=== PATIENT | male | born 1960 | race Caucasian/White ===

== ENCOUNTER 2016-07-07 | Emergency (ER) | payer MEDICAID | END 2016-07-07 03:30 | disposition left against medical advice (07) | DX: Z53.21 Procedure and treatment not carried out due to patient leaving prior to being seen by health care provider (principal) ==

== ENCOUNTER 2020-03-22 01:53 | Outpatient (CLI) | payer MEDICAID | END 2020-03-22 01:54 | disposition critical access hospital (66) | LOC: EMS 01:53 | PROVIDERS: ATTEND Surgery | DX: R47.81 Slurred speech (principal); R26.89 Other abnormalities of gait and mobility; R25.9 Unspecified abnormal involuntary movements | CPT/HCPCS: A0425; A0427; A0999 ==

== ENCOUNTER 2020-03-22 02:08 | Emergency (ER) | payer MEDICAID ==
--- NOTE | 2020-03-22 02:07 | ED Physician Documentation ---
History of Present Illness - Stated complaint Stated Complaint: AMS S/P HEROIN - History obtained from History obtained from: EMS - Additonal information Additional information: 60-year-old male brought in by EMS.The patient is unable to provide a detailed history he does admit to using IV drugs apparently according to EMS he was using IV drugs and then his noticed that he was not acting like himself so they called 911 remainder the history is unknown. Review of Systems Unable to obtain: Confused PD PAST MEDICAL HISTORY - Present Medications Home Medications: Ambulatory Orders Medication Instructions Recorded Confirmed No Known Home Medications 03/22/20 03/22/20 - Allergies Allergies/Adverse Reactions: Allergies Allergy/AdvReac Type Severity Reaction Status Date / Time No Known Drug Allergies Allergy Verified 03/22/20 02:17 PD ED PE NORMAL - Vitals Vital signs reviewed: Yes - General General: Other (Confused 60-year-old male he does appear to be under the influence of some sort of drug.) - HEENT HEENT: Atraumatic, PERRL, EOMI, Other (Pupils are 2 mm and minimally reactive.) - Neck Neck: Supple, no meningeal sign - Cardiac Cardiac: RRR, No murmur, Strong equal pulses - Respiratory Respiratory: No respiratory distress, Clear bilaterally - Abdomen Abdomen: Normal bowel sounds, Soft, Non tender, Non distended - Derm Derm: Warm and dry, Other (Presents of IV drug use in bilateral upper extremities) - Extremities Extremities: No deformity, No tenderness to palpate, No calf tenderness / cord - Neuro Neuro: Other (Confused not oriented shaking but no focal deficits) - Psych Psych: Normal mood, Normal affect Results - Vitals Vitals: Vital Signs - 24 hr 03/22/20 03/22/20 03/22/20 02:15 02:17 04:17 Temperature 37.3 C 37.3 C 36.5 C Heart Rate 72 72 86 Respiratory 20 20 20 Rate Blood Pressure 145/99 H 145/99 H 169/87 H O2 Saturation 93 93 94 03/22/20 03/22/20 04:55 05:42 Temperature 36.6 C 36.5 C Heart Rate 100 128 H Respiratory 18 18 Rate Blood Pressure 169/100 H 212/100 H O2 Saturation 98 96 Oxygen O2 Source Mechanical ventilator - EKG (time done) 03:36 Rate: Other (no stemi) - Labs Labs: Laboratory Tests 03/22/20 03/22/20 03/22/20 02:53 02:53 02:53 WBC 13.0 H RBC 5.75 Hgb 17.0 Hct 52.4 H MCV 91.1 MCH 29.6 MCHC 32.4 RDW 13.2 Plt Count 243 MPV 10.3 Neut # (Auto) 7.3 H Lymph # (Auto) 4.2 H [place] # (Auto) 1.1 H Eos # (Auto) 0.2 Baso # (Auto) 0.1 Absolute Nucleated RBC 0.00 Nucleated RBC % 0.0 PT 13.0 H INR 1.2 APTT 33.5 H Sodium 141 Potassium 4.2 Chloride 103 Carbon Dioxide 28 Anion Gap 10.0 BUN 22 H Creatinine 1.1 Estimated GFR (MDRD) 69 L Glucose 108 H Lactic Acid Calcium 9.4 Magnesium 2.4 Total Bilirubin 1.3 H AST 82 H ALT 88 H Alkaline Phosphatase 121 Total Creatine Kinase 562 H Troponin I High Sens Total Protein 7.9 Albumin 3.7 Globulin 4.2 Albumin/Globulin Ratio 0.9 L Lipase 82 H TSH Urine Color Urine Clarity Urine pH Ur Specific [place] Urine Protein Urine Glucose (UA) Urine Ketones Urine Occult Blood Urine Nitrite Urine Bilirubin Urine Urobilinogen Ur Leukocyte Esterase Urine RBC Urine WBC Ur Squamous Epith Cells Urine Bacteria Ur Microscopic Review Urine Culture Comments Salicylates < 6.0 Urine Opiates Screen Ur Oxycodone Screen Urine Methadone Screen Ur Propoxyphene Screen Acetaminophen < 10 L Ur Barbiturates Screen Ur Tricyclics Screen Ur Phencyclidine Scrn Ur Amphetamine Screen U Methamphetamines Scrn U Benzodiazepines Scrn Urine Cocaine Screen U Cannabinoids Screen Ethyl Alcohol < 5.0 03/22/20 03/22/20 03/22/20 02:53 02:53 02:53 WBC RBC Hgb Hct MCV MCH MCHC RDW Plt Count MPV Neut # (Auto) Lymph # (Auto) [place] # (Auto) Eos # (Auto) Baso # (Auto) Absolute Nucleated RBC Nucleated RBC % PT INR APTT Sodium Potassium Chloride Carbon Dioxide Anion Gap BUN Creatinine Estimated GFR (MDRD) Glucose Lactic Acid 1.9 Calcium Magnesium Total Bilirubin AST ALT Alkaline Phosphatase Total Creatine Kinase Troponin I High Sens 34.9 H* Total Protein Albumin Globulin Albumin/Globulin Ratio Lipase TSH 0.76 Urine Color Urine Clarity Urine pH Ur Specific [place] Urine Protein Urine Glucose (UA) Urine Ketones Urine Occult Blood Urine Nitrite Urine Bilirubin Urine Urobilinogen Ur Leukocyte Esterase Urine RBC Urine WBC Ur Squamous Epith Cells Urine Bacteria Ur Microscopic Review Urine Culture Comments Salicylates Urine Opiates Screen Ur Oxycodone Screen Urine Methadone Screen Ur Propoxyphene Screen Acetaminophen Ur Barbiturates Screen Ur Tricyclics Screen Ur Phencyclidine Scrn Ur Amphetamine Screen U Methamphetamines Scrn U Benzodiazepines Scrn Urine Cocaine Screen U Cannabinoids Screen Ethyl Alcohol 03/22/20 03:11 WBC RBC Hgb Hct MCV MCH MCHC RDW Plt Count MPV Neut # (Auto) Lymph # (Auto) [place] # (Auto) Eos # (Auto) Baso # (Auto) Absolute Nucleated RBC Nucleated RBC % PT INR APTT Sodium Potassium Chloride Carbon Dioxide Anion Gap BUN Creatinine Estimated GFR (MDRD) Glucose Lactic Acid Calcium Magnesium Total Bilirubin AST ALT Alkaline Phosphatase Total Creatine Kinase Troponin I High Sens Total Protein Albumin Globulin Albumin/Globulin Ratio Lipase TSH Urine Color YELLOW Urine Clarity CLEAR Urine pH 5.5 Ur Specific [place] 1.025 Urine Protein NEGATIVE Urine Glucose (UA) NEGATIVE Urine Ketones NEGATIVE Urine Occult Blood MODERATE H Urine Nitrite NEGATIVE Urine Bilirubin NEGATIVE Urine Urobilinogen 0.2 (NORMAL) Ur Leukocyte Esterase NEGATIVE Urine RBC 0-5 Urine WBC 0-3 Ur Squamous Epith Cells RARE Squamous Urine Bacteria Rare Ur Microscopic Review INDICATED Urine Culture Comments NOT INDICATED Salicylates Urine Opiates Screen POSITIVE H Ur Oxycodone Screen NEGATIVE Urine Methadone Screen NEGATIVE Ur Propoxyphene Screen NEGATIVE Acetaminophen Ur Barbiturates Screen NEGATIVE Ur Tricyclics Screen NEGATIVE Ur Phencyclidine Scrn NEGATIVE Ur Amphetamine Screen POSITIVE H U Methamphetamines Scrn POSITIVE H U Benzodiazepines Scrn NEGATIVE Urine Cocaine Screen NEGATIVE U Cannabinoids Screen NEGATIVE Ethyl Alcohol Procedures - Intubation Provider: Emergency physician Medications: Etomidate, Succinylcholine Blade: Glidescope Tube: Size-enter number (7.5), Cuffed, Marked at lips-enter cm (25) Route: Oral Confirmation: Direct visualization, Bilateral breath sounds, No abdominal breath sound, End tidal CO2, Pulse ox, Chest xray Complications: No compications PD MEDICAL DECISION MAKING - ED course Complexity details: reviewed old records, reviewed results, re-evaluated patient, considered differential, d/w patient, d/w family, d/w search consultant (Dr. He at [facility]bl[employer] paint sprayer has accepted this patient. Unable to transfer patient via [facility] due to weatherPatient will be transferred via ground ACLS.), other ED course: 60-year-old male brought in for IV drug abuse and not acting like himself he did show some evidence of pinpoint pupils and hypoventilation was given Narcan he was monitored for a while he started complaining of withdrawing from opioids and was asking for opioids. He did became diaphoretic and started yawning and diaphoretic. He was put in the CT scanner which showed a large intraparenchymal hemorrhage. Patient was then intubated using etomidate and succinylcholine with a size 7.5 endotracheal tube. Post intubation chest x-ray shows good tube placement. Patient also was started on Cardene for his intraparenchymal hemorrhage as well as propofol drip and spoke with the intensive Dr. He at [facility] who agreed to accept this patient. [facility] is not flying he will be transferred via ground ACLS. - Critical Care Time(min): 54 Time Includes: Direct patient care, Review records, Reassess patient, Document care, Coordinate care, Medical consult, Family consult for tx dec Data interpretation: Labs, Pulse ox, ABG, CXR, Prior EKG Procedures included in critical care time: Peripheral IV, Gastric intubation, Ventilator mgmt Procedures excluded from critical care time: Intubation, EKG Departure - Departure Disposition: 02 Transfer Acute Care Hosp Clinical Impression: Substance abuse, Intraparenchymal hemorrhage of brain, Elevated troponin Condition: Critical
[2020-03-22] MEDS ORDERED: NALOXONE 0.4 MG/ML VIAL IVP STA (02:22)
[2020-03-22] MEDS ORDERED: SODIUM CHLORIDE 0.9% 1,000 ML IV STA (02:43)
[2020-03-22] MEDS ORDERED: LORazepam 2 MG/ML VIAL IVP STA ×4 (02:43→03:56)
[2020-03-22] MEDS ORDERED: cloNIDine 0.3 MG PATCH TOP STA (02:54)
[2020-03-22 02:56] LABS: BASOPHILS # (AUTO) 0.1 10^3/uL (0.0-0.1); BASOPHILS % (AUTO) 0.8 %; EOSINOPHILS # (AUTO) 0.2 10^3/uL (0.0-0.7); EOSINOPHILS % (AUTO) 1.4 %; LYMPHOCYTES # (AUTO) 4.2 10^3/uL (1.5-3.5); LYMPHOCYTES % (AUTO) 32.2 %; MEAN CORPUSCULAR HEMOGLOBIN 29.6 pg (27.0-31.0); MEAN CORPUSCULAR HGB CONC 32.4 g/dL (32.0-36.0); MEAN CORPUSCULAR VOLUME 91.1 fL (80.0-94.0); MEAN PLATELET VOLUME 10.3 fL (7.4-11.4); MONOCYTES # (AUTO) 1.1 10^3/uL (0.0-1.0); MONOCYTES % (AUTO) 8.8 %; NEUTROPHILS # (AUTO) 7.3 10^3/uL (1.5-6.6); NEUTROPHILS % (AUTO) 56.3 %; PLT - PLATELET COUNT 243 10^3/uL (130-450); RED BLOOD COUNT 5.75 10^6/uL (4.70-6.10); RED CELL DISTRIBUTION WIDTH 13.2 % (12.0-15.0)
[2020-03-22 03:04] LABS: INR 1.2 (0.8-1.2)
[2020-03-22 03:11] LABS: ACETAMINOPHEN < 10 ug/mL (10-30); ALBUMIN 3.7 g/dL (3.2-5.5); ALBUMIN/GLOBULIN RATIO 0.9 (1.0-2.2); ALKALINE PHOSPHATASE 121 IU/L (42-121); ALT ALANINE AMINOTRANSFERASE 88 IU/L (10-60); AST ASPARTATE AMINOTRANSFERASE 82 IU/L (10-42); BILIRUBIN,TOTAL 1.3 mg/dL (0.2-1.0); BUN - BLOOD UREA NITROGEN 22 mg/dL (6-20); CALCIUM 9.4 mg/dL (8.5-10.3); CARBON DIOXIDE - CO2 28 mmol/L (21-32); CHLORIDE 103 mmol/L (101-111); CK- CREATINE KINASE 562 IU/L (22-269); CREATININE 1.1 mg/dL (0.6-1.2); GLUCOSE 108 mg/dL (70-100); LIPASE 82 U/L (22-51); MAGNESIUM 2.4 mg/dL (1.7-2.8); SALICYLATE < 6.0 mg/dL; SODIUM 141 mmol/L (135-145); TOTAL PROTEIN 7.9 g/dL (6.7-8.2)
[2020-03-22 03:12] LABS: PARTIAL THROMBOPLASTIN TIME 33.5 secs (24.9-33.3)
[2020-03-22 03:15] LABS: MUDS CUTOFF CONCENTRATIONS CUTOFF CONC BELOW:
[2020-03-22 03:16] LABS: BILIRUBIN,URINE NEGATIVE (NEGATIVE); GLUCOSE, URINE (UA) NEGATIVE (NEGATIVE); KETONES,URINE (UA) NEGATIVE (NEGATIVE); LEUKOCYTE ESTERASE, URINE NEGATIVE (NEGATIVE); NITRITE,URINE NEGATIVE (NEGATIVE); OCCULT BLOOD,URINE MODERATE (NEGATIVE); PH,URINE 5.5 PH (5.0-7.5); PROTEIN,URINE NEGATIVE (NEGATIVE); UROBILINOGEN,URINE 0.2 (NORMAL) E.U./dL (NORMAL)
[2020-03-22 03:17] LABS: CLARITY,URINE CLEAR (CLEAR)
[2020-03-22 03:21] LABS: BACTERIA,URINE Rare /HPF (None Seen); RBC,URINE 0-5 /HPF (0-5); SQUAMOUS EPITHELIAL CELL,UR RARE Squamous (<= Few)
[2020-03-22 03:27] LABS: AMPHETAMINE SCREEN,URINE POSITIVE (NEGATIVE); BENZODIAZEPINES SCREEN, URINE NEGATIVE (NEGATIVE); COCAINE SCREEN URINE NEGATIVE (NEGATIVE); METHADONE SCREEN, URINE NEGATIVE (NEGATIVE); METHAMPHETAMINES SCREEN, URINE POSITIVE (NEGATIVE); OPIATE SCREEN, URINE POSITIVE (NEGATIVE); OXYCODONE SCREEN, URINE NEGATIVE (NEGATIVE); PROPOXYPHENE SCREEN, URINE NEGATIVE (NEGATIVE); TRICYCLIC ANTIDEPRESSANT,URINE NEGATIVE (NEGATIVE)
[2020-03-22] MEDS ORDERED: ETOMIDATE 40 MG/20 ML VIAL IVP STA (04:35)
[2020-03-22] MEDS ORDERED: SUCCINYLCHOLINE 200 MG/10 ML VIAL IVP STA (04:36)
[2020-03-22] MEDS ORDERED: NICARDIPINE HCL 25 MG in SODIUM CHLORIDE 0.9% 240 ML IV STA (05:09)
[2020-03-22] MEDS ORDERED: fentaNYL 100 MCG/2 ML VIAL IVP STA (05:16)
[2020-03-22] MEDS ORDERED: NICARDIPINE HCL 25 MG/10 ML VIAL IV ONE (05:24)
[2020-03-22] MEDS ORDERED: ROCURONIUM 50 MG/5 ML VIAL IVP STA (05:26)
[2020-03-22 05:50] VITALS: BP 268/163
[2020-03-22] MEDS ORDERED: PROPOFOL 500 MG/50 ML 500 MG/50 ML VIAL IV SCH (06:00)
--- NOTE | 2020-03-22 07:52 | CT Report ---
PROCEDURE: HEAD WO INDICATIONS: AMS TECHNIQUE: Noncontrast 4.5 mm thick angled axial sections acquired from the foramen magnum to the vertex. For r adiation dose reduction, the following was used: automated exposure control, adjustment of mA and/or kV according to patient size. COMPARISON: None. FINDINGS: Image quality: Excellent. CSF spaces: Basal cisterns are patent. No extra-axial fluid collections. Ventricles are normal in size and shape. Brain: There is a 3.3 x 2.0 x 2.5 cm acute bleed centered in the right thalamus. Hyperdense material noted in the cerebral aqueduct and fourth ventricle suspicious for intraventricular extension of the right thalamic bleed. There is approximately 3 mm of leftward midline shift at the level of the right thalamic bleed. De Leon-white matter interface is normal. Skull and face: Calvarium and visualized facial bones are intact, without suspicious lesions. Sinuses: Visualized sinuses and mastoids are clear. IMPRESSION: 1. Acute right thalamic parenchymal bleed with approximately 3 mm of [id number] midline shift. 2. Possible trace hemorrhage within the cerebral aqueduct and fourth ventricle. Reviewed by: Olena Otoole MD, PhD on 03/22/2020 7:50 AM PDT Approved by: Olena Otoole MD, PhD on 03/22/2020 7:50 AM PDT Station ID: [id number]
--- NOTE | 2020-03-22 09:12 | XRAY Report ---
PROCEDURE: Chest 1 View X-Ray INDICATIONS: sob TECHNIQUE: One view of the chest was acquired. COMPARISON: 05/16/2015 FINDINGS: Surgical changes and devices: Surgical clips project over the left upper abdomen/lower left chest wal l Lungs and pleura: No pleural effusions or pneumothorax. Lungs are clear. Mediastinum: Mediastinal contours appear normal. Heart size is normal. Bones and chest wall: No suspicious bony lesions. Overlying soft tissues appear unremarkable. IMPRESSION: No acute cardiopulmonary disease process. Reviewed by: Olena Otoole MD, PhD on 03/22/2020 9:10 AM PDT Approved by: Olena Otoole MD, PhD on 03/22/2020 9:10 AM PDT Station ID: [id number]
--- NOTE | 2020-03-22 09:13 | XRAY Report ---
PROCEDURE: Chest 1 View X-Ray INDICATIONS: POST INUTBATION TECHNIQUE: One view of the chest was acquired. COMPARISON: 03/22/2020 at 0240 hours. FINDINGS: Surgical changes and devices: ET tube is in place which projects approximately 2.6 cm superior to the kosta.. Lungs and pleura: No pleural effusions or pneumothorax. Lungs are clear. Mild prominence of the jennifer tral pulmonary vasculature is no free interval since prior exam. Mediastinum: Mediastinal contours appear normal. Heart size is normal. Bones and chest wall: No suspicious bony lesions. Overlying soft tissues appear unremarkable. IMPRESSION: ET tube 2.6 cm superior to the kosta. Interval development of central pulmonary vasculature prominen ce which be due to congestive failure versus fluid overload. Reviewed by: Olena Otoole MD, PhD on 03/22/2020 9:12 AM PDT Approved by: Olena Otoole MD, PhD on 03/22/2020 9:12 AM PDT Station ID: [id number]
== END 2020-03-22 06:20 | disposition short-term general hospital (02) ==
LOC: EDUNIT# → ED 02:08
DX: I61.8 Other nontraumatic intracerebral hemorrhage (principal); R41.0 Disorientation, unspecified; F11.10 Opioid abuse, uncomplicated; R79.89 Other specified abnormal findings of blood chemistry
CPT/HCPCS: 31500; 36415; 70450; 71045; 80053; 80306; 80307; 80320; 80329; 81001; 82550; 83605; 83690; 83735; 84443; 84484; 85025; 85610; 85730; 93005; 96361; 96374; 96375; 96376; 99291; A9270; J0330; J2060; 81003; 87086

== ENCOUNTER 2020-03-22 06:23 | Outpatient (CLI) | payer MEDICAID | END 2020-03-22 06:24 | disposition short-term general hospital (02) | LOC: EMS 06:23 | PROVIDERS: ATTEND Surgery | DX: I62.9 Nontraumatic intracranial hemorrhage, unspecified (principal) | CPT/HCPCS: A0425; A0426 ==

== ENCOUNTER 2020-11-29 13:37 | Outpatient (CLI) | payer MEDICAID ==
[2020-11-29 14:17] VITALS: BP 142/78
--- NOTE | 2020-11-29 14:17 | SLEEP CARE CONSULTATION ---
Information from patient questionnaire entered by Luz Trevino. I have reviewed and concur with the information entered by Luz Trevino. This document represents the service I personally performed and the decisions made by me, Yoanna Valencia ARNP. History of Present Illness Service Date and Time: 11/29/2020 1337 Reason for Visit: New patient Chief Complaint: reports: Unrefreshed sleep, Snoring, Excessive daytime sleepiness, Observed pauses in breathing, Frequent awakenings at night Date of Onset: years Usual bedtime: 12 am Time it takes to fall asleep: 5 minutes Snores at night: Yes Observed to quit breathing while asleep: Yes Sleeps alone due to snoring: Yes Number of times waking at night: 10 Reasons for waking at night: reports: Snoring, Pain, Bathroom, Other (noise). denies: Choking, Gasping for air Toss, Turn, or Twitch while sleeping: Yes Recalls having dreams: Yes Usually gets out of bed at: 4 am Feels refreshed in the morning: No Morning headache: No Sleepy or fatigued during the day: Yes Ever fallen asleep while driving: No Takes day naps: Yes (daily for about an hour) Dreams during day naps: Yes Prior sleep studies: No Additional HPI information: I had the pleasure of seeing VIN CAPPS today regarding the possibility of him having a sleep disorder. His current complaints are observed pauses in breathing, snores loudly, unrefreshed sleep, frequent night awakenings and excessive daytime sleepiness. He states he does not wake up feeling rested and is frequently sleepy during the day. He takes a nap nearly every day for about an hour. He does have to get up often at night to go to the bathroom noises waking him up or pain. He has woken himself up snoring in the past. He had a stroke in March 2020. He is here because his has asked him to get this checked out and will sometimes sleep in other room due to snoring. He states he is going to see a scrap yard worker soon to check out a possible heart blockage. He states his usually keeps track of these things so he is not sure what it is. - Parasomnia Symptoms Ever been unable to move upon waking from sleep: No Walks in sleep: No Talks in sleep: Yes Ever acted out dreams in sleep: Yes Ever felt weak in the knees when startled or emotional: Yes Bothered by creepy, crawly, restless sensations in legs: No Problems with memory or concentration: Yes (both) Subjective Initial Whitt Sleepiness Scale score: 16 (in 2020) Past Medical History Past Medical History: reports: Hypertension, Stroke (03/22/2020, 1st degree block), Anxiety, Depression, Other (thinks he might have a heart block on the right side) Social History The patient's occupation is a [employer]. Patient is Single and lives in [place]. Have you smoked in the past 12 months: Yes Cigarettes per day (20/pack): 20 Years of smokin Smoking Pack Years: 50.0 Alcohol use: Yes Alcohol amount and frequency: 1 drink a week Caffeine use: Yes Caffeine amount and frequency: 1 drink a week Family History Family history of sleep disordered breathing: No Allergies and Home Medications Drug allergies reviewed: Yes (NKDA) Allergy and home medication list: Hydroxyzine Paomate Folic acid Losartan Potassium Amlodipine Besylate Sertraline Narcan nasal spray Review of Systems Weight gain over past 5 years: 10 Cardiovascular: reports: high blood pressure, leg or foot swelling Respiratory: reports: shortness of breath Gastrointestinal: reports: heartburn, other (constipation) Urinary: reports: frequency Neurological: reports: headaches, head trauma, disorientation, gait or balance problems Psychiatric: reports: anxiety, depression Ear/Nose/Throat: reports: nasal congestion, wisdom teeth removed. denies: tonsillectomy Endocrine: reports: increased urination Musculoskeletal: reports: joint pain, neck pain, back pain, joint swelling, mobility problems Physical Exam Blood Pressure: 142/78 Cuff size: long Heart Rate: 70 O2 Saturation: 95 Height: 6 ft Weight: 186 lb Body Mass Index: 25.2 BMI Classification: Overweight Neck circumference: 16.5 (inches) Nostrils: patent to airflow Mouth and throat: narrow oropharynx Soft palate: long Uvula visualization: 25% Mallampati Class III Tongue: enlarged in size with teeth boone on lateral edges Tonsils: 1+ Neck: normal w/o lymphadenopathy or thyromegaly Heart: regular rate and rhythm, murmur Lungs: clear bilaterally Impression and Plan 1. Suspected Obstructive Sleep Apnea-Hypopnea Syndrome, as suggested by a history of loud and irregular snoring, observed cessation of breath while asleep, frequent awakening during the night, unrefreshed sleep, cognitive impairment, and excessive daytime sleepiness. Narrow oropharynx and obesity are common predisposing factors for obstructive sleep apnea-hypopnea syndrome. I recommend proceeding to polysomnography to confirm the diagnosis and to assess severity. If the patient has significant sleep disordered breathing, a manual CPAP titration study will also be performed to find the optimal treatment pressure. I informed the patient of what the sleep studies involve and after some discussion, obtained agreement to proceed. The pathophysiology of obstructive sleep apnea-hypopnea syndrome was discussed with the patient and health risks of cardiovascular and cerebrovascular disease if not treated. Risks of drowsy driving discussed in detail and patient advised to avoid long distance driving and to tack puller at the first sign of drowsiness. Patient agreed to plan. * Schedule polysomnography +- manual CPAP titration study and return in 1-2 weeks after the study to discuss result and initiate therapy. * Avoid long distance driving or driving when feeling sleepy. * Avoid alcohol, sedative and muscle relaxant around bedtime. * Attempt to lose weight. * Review instructions provided by trained office staff on how to prepare for the sleep study. * Return for follow-up after sleep study completed. Counseling Topics: Weight loss health impact Visit Type: In Office Time Spent with Patient (minutes): 30 Provider Statement: I spent 100% of the Face to Face Visit with the patient with greater than 50% spent counseling the patient and coordination of care.
== END 2020-11-29 13:38 | disposition home or self-care (01) ==
LOC: SC 13:37
PROVIDERS: ATTEND Nurse Practitioner Family
DX: G47.10 Hypersomnia, unspecified (principal); R06.83 Snoring; F17.210 Nicotine dependence, cigarettes, uncomplicated; G47.8 Other sleep disorders; R41.89 Other symptoms and signs involving cognitive functions and awareness; R06.81 Apnea, not elsewhere classified; E66.3 Overweight; Z68.25 Body mass index [BMI] 25.0-25.9, adult
CPT/HCPCS: 99203; 99212